=== PATIENT | male | born 1955 | race Caucasian/White ===

== ENCOUNTER 2018-10-02 11:22 | Emergency (ER) | payer OTHER ==
[2018-10-02] MEDS ORDERED: TDAP ADULT 0.5 ML INJ (BOOSTRIX) IM ONE (12:13)
[2018-10-02] MEDS ORDERED: LET GEL TOPICAL 1 EA SYR TP ONE (12:13)
--- NOTE | 2018-10-02 12:16 | EDPHY ---
H & P Time Seen by Provider: 10/02/18 12:08 HPI/ROS: CLINICAL IMPRESSION: Dog bite left lower leg ASSESSMENT/PLAN: 63-year-old male presents to the emergency department after he was bitten by a [place] Flores while hiking in [place] today. This was an unprovoked attack and it has been reported to animal Control. This was not the patient's dog. Patient reports tetanus is not up-to-date and he received vaccine today. Wound was anesthetized, thoroughly cleaned and explored to the base with gloved finger showing no evidence of foreign body. Patient had 1 larger wound on the posterior calf that I sutured loosely with 2 sutures. Antibiotics prescribed. PCP follow-up in 24-48 hours advised. Wound care discussed, signs and symptoms of infection reviewed, warning signs return to ER sooner outlined in discharge. DIFFERENTIAL DX: Differential includes but not limited to superficial laceration, deep laceration , retained foreign body, deep structure injury ED PROCEDURES: Laceration Repair Verbal consent obtained by patient. Risks discussed, including but not limited to infection, pain, retained foreign body, need for additional repair, poor cosmetic result, tendon damage, nerve damage, poor wound healing, vascular damage. Alternatives to repair discussed. [place] protocol used to establish correct patient, procedure, equipment, technical support analyst, and site. Anesthesia obtained by topical application and local infiltration with 1% lidocaine. Anesthetized with 1% lidocaine. Laceration location left calf, length 1 cm, depth 2 mm, Repair type simple. Patient was prepped and draped in usual sterile fashion. Hemostasis achieved with direct pressure. Wound explored through full range of motion and entire depth of wound probed and visualized with gloved finger. No suspicion for nerve damage, tendon damage, underlying fracture, vascular damage, foreign body, or contamination. Area was cleansed with Shur-Clens and irrigated with sterile saline as per protocol. No foreign body or material removed. Repair method for 0 Prolene. Two sutures placed. Well aligned, closely approximated. wound was dressed with antibiotic ointment and Band-Aid. Patient tolerated well with no immediate complications. Wound care: Clean and dry x 24 hours, gently clean with soap and water, cover with topical antibiotic ointment/bandage. Suture/Staple removal: 7 Days ED COURSE: CHIEF COMPLAINT: Dog bite to left leg HPI: 63-year-old male presents to the emergency department with an acute dog bite to the left lower leg. Patient reports he was hiking in the open space with his when a dog who was with his ulnar but off lesion, came out of the [place] and bit his leg. Patient did not have a dog with him and the attack was unprovoked. This has been reported to animal Control. Patient reports the dog was a [place]ut[place] Flores and bit him through pants. His tetanus is not up-to- date. He has been ambulatory without difficulty. No significant pain. No other injuries. PMH: None reported Pertinent Past Surgical History: Noncontributory Family History: Noncontributory Social History: Otherwise healthy ROS: A full 10 point review of systems was negative except for those mentioned in HPI. PHYSICAL EXAM: General Appearance: Alert, oriented, appropriate, cooperative, NAD, well hydrated, non-toxic appearing, VSS, no hypoxia. Skin: Warm, dry, no rashes, no nodules on palpation, 1 cm suturable laceration to left calf. Multiple associated superficial lacerations to the left calf. Normal dorsiflexion and plantar flexion of the foot. No obvious involvement of muscle or deep structures. MDM: Patient was seen independently by established practice protocols. Secondary supervising physician at time of evaluation was Dr. Wilks. Diagnosis: Left calf laceration secondary to dog bite. New, requires workup Summary: See Assessment and Plan for summary of ED visit Clinical lab tests: Not obtained. Risk of comlications, morbidity, mortality: Presenting problem low Diagnostic procedures low Management Options low Patient Progress: Stable. Smoking Status: Current some day smoker Constitutional: Initial Vital Signs Temperature (C) 37.1 C 10/02/18 11:24 Heart Rate 96 10/02/18 11:24 Respiratory Rate 17 10/02/18 11:24 Blood Pressure 130/88 H 10/02/18 11:24 O2 Sat (%) 97 10/02/18 11:24 O2 Delivery Mode Room Air Allergies/Adverse Reactions: No Known Allergies Allergy (Verified 10/02/18 11:24) Home Medications: Medication Instructions Recorded Tamsulosin HCl [Flomax 0.4 MG (RX)] 0.4 mg PO DAILY8 06/16/13 Amoxicillin/Clavulanate Pot 875 mg PO BID #14 tab 10/02/18 [Augmentin 875 mg tab] MDM/Departure - MDM Medications Given: Discontinued Medications Diphtheria/Tetanus/Acell Pertussis (Boostrix) 0.5 ml IM .ONCE ONE Stop: 10/02/18 12:14 Last Admin: 10/02/18 12:22 Dose: 0.5 ml Tetracaine/Epinephrine/Lidocaine (Let Gel Topical) 1 ea TP EDNOW ONE Stop: 10/02/18 12:14 Last Admin: 10/02/18 12:24 Dose: 1 ea - Depart Disposition: Home, Routine, Self-Care Clinical Impression: Dog bite Qualifiers: Encounter type: initial encounter Qualified Code(s): W54.0XXA - Bitten by dog, initial encounter Condition: Good Instructions: Animal Bite (ED) Additional Instructions: DISCHARGE INSTRUCTIONS FROM YOUR DOCTOR Thank you for visiting our emergency department today. Please keep in mind that discharge from the emergency department does not mean that there is nothing wrong - it simply means that we have not identified an emergency condition that requires further evaluation or treatment in the hospital. You should always plan to follow up with primary care for re-evaluation of your condition in the next 2-3 days. If you have been referred to a specialist, please call as soon as possible (today or tomorrow) to schedule your follow up appointment at the appropriate time. Your wound was thoroughly cleaned, repaired, and your tetanus was updated today. Antibiotics were prescribed. We strongly recommend to follow up with a primary care doctor in 24-48 hours to recheck. Keep the area very clean. Please have sutures/yuliana removed in 7-10 Days. You can return to the emergency department or your primary care for suture/staple removal. Avoid submerging sutures/yuliana underwater for prolonged period of time until removed. Keep wound clean and dry, cover with antibiotic ointment and Band-Aid. Return to emergency department for redness, swelling, discharge, warmth to the skin, or any other concerns for infection. People present with illnesses and injuries in different ways, and it is always possible that we have missed something. You may always return for re-evaluation if symptoms worsen or if they are not improving or if you develop new/different symptoms. Again, thank you for choosing our emergency department. We hope that you feel better. Prescriptions: Amoxicillin/Clavulanate Pot [Augmentin 875 mg tab] 875 mg PO BID #14 tab Referrals: Beth Martínez MD [Primary Care Provider] - As per Instructions
[2018-10-02 13:20] VITALS: BP 133/84
== END 2018-10-02 13:20 | disposition home or self-care (01) ==
PROC: 0HQLXZZ Repair Left Lower Leg Skin, External Approach (ICD-10-PCS; principal; 2018-10-02)
DX: S81.852A Open bite, left lower leg, initial encounter (principal); W54.0XXA Bitten by dog, initial encounter; Y93.01 Activity, walking, marching and hiking; Y92.9 Unspecified place or not applicable; Y99.9 Unspecified external cause status; Z23 Encounter for immunization